=== PATIENT | female | born 1945 | race Caucasian/White ===

== ENCOUNTER 2017-06-10 14:44 | Emergency (ER) | payer MEDICARE, OTHER ==
[~2017-06-10] VITALS: Ht 152.4 cm; Wt 65.5 kg
[2017-06-10 15:11] VITALS: Ht 152.4 cm; Wt 65.5 kg
[2017-06-10] MEDS ORDERED: IBUPROFEN 600 MG TAB PO ONE (17:30)
--- NOTE | 2017-06-10 17:49 | RADRPT ---
PROCEDURE: Left wrist series CLINICAL INDICATION: Left wrist pain. Trauma TECHNIQUE: AP, oblique, and lateral views of the left wrist were obtained. COMPARISON: None FINDINGS: No acute fracture or dislocations are seen. The osseous structures are well mineralized. 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 The remaining articular surfaces are no rmal. No soft tissue abnormalities are seen. 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 RPTAT: HPNM Physician Santos Date Time Electronically viewed and signed by Curt Jauregui Physician on 06/10/2017 17:49 /
[2017-06-10] MEDS ORDERED: ACET500C5 PO (18:01)
--- NOTE | 2017-06-10 18:06 | ERD ---
ER Documentation Chief Complaint Date/Time DATE: 06/10/17 TIME: 18:04 Chief Complaint left shoulder and side pain from a fall today-no head injury HPI This 72-year-old female presents with left wrist pain after tripping and falling today. She denies head injury, neck injury, weakness. She denies elbow or shoulder tenderness. She denies bleeding or lacerations. ROS All systems reviewed and are negative except as per history of present illness. Medications Home Meds Active Scripts Acetaminophen* (Tylophen*) 500 Mg Capsule, 1 CAP PO Q6H Y for PAIN AND OR ELEVATED TEMP, #15 CAP Prov:SHIRA SORENSEN MD 06/10/17 Physical Exam Vitals Vital Signs Date Time Temp Pulse Resp B/P Pulse Ox O2 Delivery O2 Flow Rate FiO2 06/10/17 15:11 98.7 88 18 124/73 96 Physical Exam Const: []Alert, [id number] per Head: Atraumatic Eyes: Normal Conjunctiva ENT: Normal External Ears, Nose and Mouth. Neck: Full range of motion..~ No meningismus. Resp: Clear to auscultation bilaterally Cardio: Regular rate and rhythm, no murmurs Abd: Soft, non tender, non distended. Normal bowel sounds Skin: No petechiae or rashes Back: No midline or flank tenderness Ext: No cyanosis, or edema. Some tenderness over the dorsum of the left wrist joint. There is no appreciable significant deformities. There is no restricted range of motion or evidence of tendon or neurologic deficits. There is no lacerations or erythema or bleeding. Neur: Awake and alert Psych: Normal Mood and Affect Results 24 hrs Current Medications Medications (Trade) Dose Ordered Sig/Aris Route PRN Reason Start Time Stop Time Status Last Admin Dose Admin Ibuprofen (Motrin) 600 mg ONCE ONCE PO 06/10/17 17:30 06/10/17 17:31 DC Procedures/MDM X-ray left wrist 3V Interpreted by me: Scaphoid: [Normal] Bones: [No fracture] Joints: [No dislocation] Foreign body: [None]. Impression-degenerative changes of the first metacarpal phalangeal joint, there is no acute fracture dislocation identified. Patient placed in left arm sling and given a Velcro brace. Patient is nervous intact after the brace. Patient declined any pain medication. Patient presents after mechanical fall today with signs of a left wrist sprain without evidence of fracture, dislocation, deficits, infection. She will be discharged home with primary care and orthopedic follow-up for pain next week. She should return sooner for fevers, redness, new worsening symptoms . There is no evidence to suggest head injury, neck injury, additional complications due to her fall. Departure Diagnosis: Primary Impression: Wrist injury Encounter type: initial encounter Laterality: left Qualified Code: S69.92XA - Injury of left wrist, initial encounter Condition: Stable Patient Instructions: Wrist Sprain Referrals: VIKTORIYA BARRERA MD, HRAIR E MD Additional Instructions: No fracture seen on x-ray. There is arthritis. See orthopedics and primary doctor for pain next week. Recheck sooner for new or worsening symptoms. SHIRA SORENSEN MD Jun 10, 2017 18:06
== END 2017-06-10 19:45 | disposition home or self-care (01) ==
LOC: FTE 14:44
DX: S69.92XA Unspecified injury of left wrist, hand and finger(s), initial encounter (principal); W01.0XXA Fall on same level from slipping, tripping and stumbling without subsequent striking against object, initial encounter; Y92.9 Unspecified place or not applicable